=== PATIENT | female | born 1990 | race Caucasian/White ===

== ENCOUNTER 2023-01-09 19:00 | Inpatient (IN) | payer OTHER ==
[2023-01-10] MEDS ORDERED: Bupivacaine/Epinephrine 0.25% 30 ML VIAL ONE (08:00)
[2023-01-10 08:02] VITALS: BMI 43.7
[2023-01-10] MEDS ORDERED: NS w/ Oxytocin 30 units 500 ML ONE (08:22)
[2023-01-10] MEDS ORDERED: Methylergonovine 0.2 MG/ML VIAL IM PRN (08:31)
[2023-01-10] MEDS ORDERED: Diphenoxylate HCl/Atropine Tablet PO PRN ×2 (08:31)
[2023-01-10] MEDS ORDERED: Zolpidem Tartrate 5 MG TAB PO PRN (08:31)
[2023-01-10] MEDS ORDERED: Ondansetron PF 4 MG/2 ML Vial IVP PRN (08:31)
[2023-01-10] MEDS ORDERED: Carboprost 250 MCG/ML AMP IM PRN (08:31)
[2023-01-10] MEDS ORDERED: Butorphanol Tartrate 1 MG/ML VIAL SLOW IVP PRN (08:31)
[2023-01-10] MEDS ORDERED: NS w/ Oxytocin 30 units 500 ML IV SCH ×2 (08:31)
[2023-01-10] MEDS ORDERED: Ibuprofen 800 MG TAB PO PRN (08:31)
[2023-01-10] MEDS ORDERED: Acetaminophen 500 MG TAB PO PRN (08:31)
[2023-01-10] MEDS ORDERED: hydrALAZINE 20 MG/ML VIAL SLOW IVP PRN ×2 (08:31→21:40)
[2023-01-10] MEDS ORDERED: HYDROcodone/Acetaminophen 5/325 mg Tablet PO PRN ×2 (08:31)
[2023-01-10] MEDS ORDERED: Misoprostol 200 MCG TAB PR PRN (08:31)
[2023-01-10] MEDS ORDERED: Promethazine HCl 25 MG/ML VIAL IM PRN (08:31)
[2023-01-10] MEDS ORDERED: Lidocaine 1% (PF) 30 ML VIAL SC PRN (08:31)
[2023-01-10 08:47] LABS: Hemoglobin 11.2 g/dL (12.0-15.5); Mean Corpuscular HGB CONC 32.7 g/dL (32.0-36.0); Mean Corpuscular Hemoglobin 28.5 pg (27.0-33.0); Mean Corpuscular Volume 87.3 fl (81.6-98.3); Mean Platelet Volume 11.6 fl (7.4-10.4); Platelet Count 237 10x3/uL (150-450); RBC Distribution Width 15.1 % (11.5-14.5); Red Blood Cell (RBC) Count 3.93 10x6/uL (3.90-5.03); White Blood Cell (WBC) Count 9.5 10x3/uL (3.5-10.5)
[2023-01-10 09:09] LABS: HBSAg Index 0.26 S/CO (0-0.99); Hep B Surf Ag - L&D Non-Reactive S/CO (NonReactive)
[2023-01-10 09:10] LABS: Syphilis Antibody Nonreactive (Nonreactive); Syphilis Antibody Index 0.08 S/CO (<1.00 Non-Reactive)
[2023-01-10] MEDS ORDERED: Fentanyl 2 mcg/Bup 0.1% Cadd 100 ML ONE ×2 (12:46→20:29)
[2023-01-10] MEDS ORDERED: Fentanyl 100 MCG/2 ML VIAL ONE (12:57)
[2023-01-10] MEDS: Lactated Ringer's 1,000 ML IV SCH ×2 (13:13→23:40)
[2023-01-10] MEDS ORDERED: Boostrix 0.5 ML (Tdap) VIAL (>/=7 yrs of age) IM ONE (21:40)
[2023-01-10] MEDS ORDERED: Milk Of Magnesia 30 ML UDCUP PO PRN (21:40)
[2023-01-10] MEDS ORDERED: Lanolin Ointment 7 GM TUBE TOP PRN (21:40)
[2023-01-10] MEDS ORDERED: Preparation H Ointment 28 GM TUBE PR PRN (21:40)
[2023-01-10] MEDS ORDERED: diphenhydrAMINE 25 MG CAP PO PRN (21:40)
[2023-01-10] MEDS ORDERED: Bisacodyl 10 MG SUPP PR PRN (21:40)
[2023-01-10] MEDS: Misoprostol 100 MCG TAB VAG SCH ×2 (23:39→23:40)
[2023-01-10] MEDS: Docusate 100 MG CAP PO SCH (23:47)
[2023-01-10] MEDS: Ibuprofen 800 MG TAB PO PRN (23:47)
[2023-01-11] MEDS: Misoprostol 100 MCG TAB VAG SCH ×5 (04:05→23:35)
[2023-01-11 04:55] LABS: Hemoglobin 10.2 g/dL (12.0-15.5)
[2023-01-11] MEDS: Ibuprofen 800 MG TAB PO PRN ×3 (08:39→23:33)
[2023-01-11] MEDS: Docusate 100 MG CAP PO SCH ×2 (08:40→21:44)
[2023-01-11] MEDS: Prenatal Vitamin 1 TAB PO SCH (08:40)
[2023-01-11] MEDS: Ferrous Sulfate 325 MG TAB PO SCH ×2 (09:39→20:00)
[2023-01-11] MEDS ORDERED: traMADol HCl 50 MG TAB PO PRN (13:33)
[2023-01-12] MEDS: Misoprostol 100 MCG TAB VAG SCH ×3 (00:33→10:58)
[2023-01-12 08:02] VITALS: BP 121/74; TEMP 98.4
[2023-01-12] MEDS: Docusate 100 MG CAP PO SCH (09:40)
[2023-01-12] MEDS: Prenatal Vitamin 1 TAB PO SCH (09:40)
[2023-01-12] MEDS: Ibuprofen 800 MG TAB PO PRN (09:40)
[2023-01-12] MEDS: Ferrous Sulfate 325 MG TAB PO SCH (09:42)
== END 2023-01-12 12:50 | disposition home or self-care (01) | DRG 807 ==
LOC: CSHLD 01-10 06:31 → CSHPP 01-10 23:30
PROVIDERS: ADMIT Obstetrics & Gynecology; ATTEND Obstetrics & Gynecology
PROC: 10E0XZZ Delivery of Products of Conception, External Approach (ICD-10-PCS; principal; 2023-01-10)
DX: O77.0 Labor and delivery complicated by meconium in amniotic fluid (principal); Z37.0 Single live birth; Z3A.39 39 weeks gestation of pregnancy; O99.284 Endocrine, nutritional and metabolic diseases complicating childbirth; E03.9 Hypothyroidism, unspecified; Z88.1 Allergy status to other antibiotic agents
CPT/HCPCS: 36415; 51702; 85014; 85018; 85027; 86780; 86850; 86900; 86901; 87340; J2405; J2590; J7120